=== PATIENT | female | born 1950 | race Caucasian/White ===

== ENCOUNTER 2016-04-17 05:46 | Inpatient (IN) | payer MEDICARE, OTHER ==
[~2016-04-17] VITALS: Ht 170.2 cm; Wt 104.3 kg
[~2016-04-17 05:46] MED LIST: ALPRAZOLAM0.5 MG PO; CALCIUM PO; LISINOPRIL5 MG PO; NORCO 10-325 T1 EACH PO; VITAMIN D50000 UNIT PO
[2016-04-17] MEDS ORDERED: CALCIUM CARBON500 MG PO (13:23)
[2016-04-18 06:12] LABS: RED BLOOD COUNT 3.17 M/UL (4.00-5.10); WHITE BLOOD COUNT 10.4 K/UL (4.5-11.0)
[2016-04-18 06:36] LABS: BUN/CREATININE RATIO 13 (0-10)
[2016-04-19 05:49] LABS: HEMOGLOBIN 9.9 gm/dl (12.3-15.3); RED BLOOD COUNT 3.14 M/UL (4.00-5.10); WHITE BLOOD COUNT 6.5 K/UL (4.5-11.0)
[2016-04-19 06:18] LABS: BUN/CREATININE RATIO 13 (0-10)
[2016-04-19] MEDS ORDERED: XARELTO 10 MG T10 MG PO (17:06)
== END 2016-04-19 17:41 | disposition home health service (06) | DRG 470 ==
LOC: CARD SPC 05:46 → ZRECOF 05:46 → M/S 05:46
PROVIDERS: ADMIT Orthopaedic Surgery
PROC: 0SRD0J9 Replacement of Left Knee Joint with Synthetic Substitute, Cemented, Open Approach (ICD-10-PCS; principal; 2016-04-17 07:45)
DX: M17.12 Unilateral primary osteoarthritis, left knee (principal); D62 Acute posthemorrhagic anemia; F41.9 Anxiety disorder, unspecified; I95.2 Hypotension due to drugs; R00.1 Bradycardia, unspecified; T39.95XA Adverse effect of unspecified nonopioid analgesic, antipyretic and antirheumatic, initial encounter; Y92.230 Patient room in hospital as the place of occurrence of the external cause; Z79.899 Other long term (current) drug therapy; Z79.891 Long term (current) use of opiate analgesic; Z88.8 Allergy status to other drugs, medicaments and biological substances; Z88.0 Allergy status to penicillin
CPT/HCPCS: 36415; 73560; 80048; 80051; 82565; 84520; 85025; 86850; 86900; 86901; 97110; 97116; 97530; 97535; C1776; J0171; J0735; J1100; J1885; J2250; J2270; J2274; J2405; J2550; J2710; J2795; J3010; J3370; J7050; J7120

== ENCOUNTER → 2020-07-20 | Outpatient (CLI) | payer OTHER ==
[~2020-07-20] MED LIST changes: +BENADRYL 25MG C25 MG PO; +CALCIUM CARBON500 MG PO; +GABAPENTIN600 MG PO; +GLUCOPHAGE500 MG PO; +HYDROCHLOROTHIA25 MG PO; +HYDROCODONE-AC1 EAC1 PO; +KLONOPIN TAB 00.5 MG PO; +LORATADINE10 MG PO; +MONTELUKAST SOD10 MG PO; +NORCO 5-325 TA1 EACH PO; +NORVASC 5 MG TAB5 MG PO; +OMEPRAZOLE40 MG PO; +PHENERGAN 12.12.5 M1 PO; +PHENERGAN 25 MG25 M1 PO; +POTASSIUM CHLO10 ME1 PO; +PRAVASTATIN SOD20 MG PO; +REMERON15 MG PO; +SPIRONOLACTONE25 MG PO; +UROCIT-K10 MEQ PO; +WELLBUTRIN SR150 M1 PO; +XARELTO 10 MG T10 MG PO; +ZETIA10 MG PO
[2020-07-20 08:58] LABS: HEMOGLOBIN 13.5 gm/dl (12.3-15.3); RED BLOOD COUNT 4.3 M/UL (4.00-5.10); WHITE BLOOD COUNT 6.3 K/UL (4.5-11.0)
[2020-07-20 10:07] LABS: BUN/CREATININE RATIO 18 (0-10)
== END ==
LOC: OPSV2 07:42
PROVIDERS: Orthopaedic Surgery
DX: Z01.818 Encounter for other preprocedural examination (principal); G56.01 Carpal tunnel syndrome, right upper limb; R94.31 Abnormal electrocardiogram [ECG] [EKG]
CPT/HCPCS: 36415; 80048; 85025; 93005

== ENCOUNTER → 2020-07-26 | Day surgery (SDC) | payer OTHER ==
[~2020-07-26] VITALS: Ht 170.2 cm; Wt 93.4 kg
[2020-07-26 07:00] LABS: BUN/CREATININE RATIO 17 (0-10)
== END | disposition home or self-care (01) ==
LOC: OR 05:59
PROVIDERS: Orthopaedic Surgery
DX: G56.01 Carpal tunnel syndrome, right upper limb (principal); E78.5 Hyperlipidemia, unspecified; E11.9 Type 2 diabetes mellitus without complications; M19.90 Unspecified osteoarthritis, unspecified site; F41.9 Anxiety disorder, unspecified; K21.9 Gastro-esophageal reflux disease without esophagitis; Z87.891 Personal history of nicotine dependence; Z88.0 Allergy status to penicillin; Z88.8 Allergy status to other drugs, medicaments and biological substances; Z79.84 Long term (current) use of oral hypoglycemic drugs; Z79.899 Other long term (current) drug therapy
CPT/HCPCS: 36415; 80048; J0690; J2001; J2704; J3010; J7030; J7120

== ENCOUNTER → 2020-09-23 | Outpatient (CLI) | payer OTHER, SELFPAY ==
[~2020-09-23] MED LIST changes: +ESTRADIOL TOP; +HYDROCODON-ACE1 EAC2 PO
[2020-09-23 10:36] LABS: HEMOGLOBIN 13.6 gm/dl (12.3-15.3); RED BLOOD COUNT 4.31 M/UL (4.00-5.10); WHITE BLOOD COUNT 5.7 K/UL (4.5-11.0)
[2020-09-23 11:08] LABS: BUN/CREATININE RATIO 18 (0-10)
== END ==
LOC: OPSV2 09:24
PROVIDERS: Orthopaedic Surgery
DX: Z01.812 Encounter for preprocedural laboratory examination (principal); G56.02 Carpal tunnel syndrome, left upper limb; Z88.0 Allergy status to penicillin; Z88.8 Allergy status to other drugs, medicaments and biological substances
CPT/HCPCS: 36415; 80048; 85025

== ENCOUNTER → 2020-09-27 | Day surgery (SDC) | payer OTHER, SELFPAY ==
[~2020-09-27] VITALS: Ht 162.6 cm; Wt 95.3 kg
== END | disposition home or self-care (01) ==
LOC: OR 05:10
DX: G56.02 Carpal tunnel syndrome, left upper limb (principal); E78.5 Hyperlipidemia, unspecified; F41.9 Anxiety disorder, unspecified; E11.9 Type 2 diabetes mellitus without complications; Z96.659 Presence of unspecified artificial knee joint; Z88.0 Allergy status to penicillin; Z88.6 Allergy status to analgesic agent; F40.240 Claustrophobia; Z20.822 Contact with and (suspected) exposure to COVID-19; Z87.891 Personal history of nicotine dependence
CPT/HCPCS: 82962; J2250; J2405; J2704; J3010; J7030; J7120

== ENCOUNTER → 2020-11-02 | Outpatient (CLI) | payer OTHER | LOC: KOH-I 15:25 | DX: R22.42 Localized swelling, mass and lump, left lower limb (principal) | CPT/HCPCS: 93971 ==